=== PATIENT | female | born 1955 | race Caucasian/White ===

== ENCOUNTER → 2016-10-24 | Day surgery (SDC) | payer BC ==
[2016-10-19 15:40] VITALS: Ht 157.5 cm; Wt 72.7 kg
[~2016-10-24] VITALS: Ht 157.5 cm; Wt 72.7 kg
[~2016-10-24] MED LIST: CITA40TA12 PO; LEVO75TA PO; LIDOCAINE HCL 2% 2 ML VIAL (20MG/ML) ONE; MIDAZOLAM HCL 1 MG/ML 2ML VIAL ONE; ONDANSETRON INJ 2 MG/ML 2 ML VIAL ONE; PROPOFOL IV EMULSION 10 MG/ML 20 ML VIAL IV ONE; VITAMIN D PO
--- NOTE | 2016-10-24 11:36 | Endo History and Physical ---
History & Physical Date of Service: Oct 24, 2016. Chief Complaint: HX OF POLYPS Referring Physician: DR. DAHL History of Present Illness 60 yo CF who presents for colonoscopy secondary to history of colon polyps Past Medical History Thyroid Disease, [place] Past Surgical History Hx Cardiac Surgery: No Hx Internal Defibrillator: No Hx Pacemaker: No Hx Abdominal Surgery: No Hx of Implantable Prosthesis: No Hx Post-Op Nausea and Vomiting: Yes Hx Cancer Surgery: No Hx Thoracic Surgery: No Hx Orthopedic: Yes (RT SHOULDER ARTHROSCOPY, RT FOOT TOE SX) Hx Urinary Tract Surgery: No Family History Colon CA, IBD Social History Smoking Status: Former Smoker Hx Substance Use: No Hx Alcohol Use: Yes (RARELY) Allergies Coded Allergies: Adhesives (Verified Allergy, Unknown, WELTS, 10/24/16) Lactose Intolerance (Verified Adverse Reaction, Unknown, GI UPSET, 10/24/16 ) PATIENT CAN HAVE IN SMALL DOSES Current Medications Reported Home Medications Medications Dose Route/Sig Max Daily Dose Days Date Category [Vitamin D] 1 Tab PO QPM 10/19/16 Reported Synthroid (Levothyroxine Sodium) 75 Mcg Tab 75 Mcg PO QPM 05/31/13 Reported Celexa (Citalopram Hydrobromide) 40 Mg Tab 40 Mg PO QPM 05/31/13 Reported Vital Signs Weight (Kilograms): 72.73 Height (Feet): 5 Height (Inches): 2 Date Time Temp Pulse Resp B/P Pulse Ox O2 Delivery O2 Flow Rate FiO2 10/24/16 09:56 36.5 84 16 114/66 96 Room Air Physical Exam General Appearance: WD/WN, no apparent distress Respiratory/Chest: Auscultation: breath sounds normal Cardiovascular: Heart Auscultation: RRR Abdomen: Bowel Sounds: normal Inspection & Palpation: soft, non-distended, no tenderness, guarding & rebound Assessment and Plan Assessment: 60 yo CF who presents for colonoscopy secondary to history of colon polyps Plan: Proceed with colonoscopy.
--- NOTE | 2016-10-24 12:04 | GI REPORT ---
Procedure Date: 10/24/2016 11:17 AM Procedure: Colonoscopy Indications: Family history of colon cancer in a first-degree relative Medicines: Monitored Anesthesia Care Complications: No immediate complications. Estimated Blood Loss: Estimated blood loss: none. Procedure: Pre-Anesthesia Assessment: - Prior to the procedure, a History and Physical was performed, and patient medications and allergies were reviewed. The patient's tolerance of previous anesthesia was also reviewed. The risks and benefits of the procedure and the sedation options and risks were discussed with the patient. All questions were answered, and informed consent was obtained. Prior Anticoagulants: The patient has taken no previous anticoagulant or antiplatelet agents. ASA Grade Assessment: II - A patient with mild systemic disease. After reviewing the risks and benefits, the patient was deemed in satisfactory condition to undergo the procedure. After I obtained informed consent, the scope was passed under direct vision. Throughout the procedure, the patient's blood pressure, pulse, and oxygen saturations were monitored continuously. The Scope was introduced through the anus and advanced to the terminal ileum. The colonoscopy was performed without difficulty. The patient tolerated the procedure well. The quality of the bowel preparation was good. The terminal ileum, ileocecal valve, appendiceal orifice, and rectum were photographed. Findings: Two sessile polyps were found in the ascending colon. The polyps were 5 to 6 mm in size. These polyps were removed with a hot snare. Resection and retrieval were complete. The exam was otherwise without abnormality. Impression: - Two 5 to 6 mm polyps in the ascending colon, removed with a hot snare. Resected and retrieved. - The examination was otherwise normal. Recommendation: - Resume previous diet. - Continue present medications. - Repeat colonoscopy for surveillance based on pathology results. - Return to primary care physician as previously scheduled. Jeff Emerson DO 10/24/2016 12:03:26 PM This report has been signed electronically. Note Initiated On: 10/24/2016 11:17 AM
--- NOTE | 2016-10-24 12:05 | Discharge Instructions ---
Endoscopy Patient Instructions Date / Procedure(s) Performed Oct 24, 2016. Colonoscopy Allergy Information Coded Allergies: Adhesives (Verified Allergy, Unknown, WELTS, 10/24/16) Lactose Intolerance (Verified Adverse Reaction, Unknown, GI UPSET, 10/24/16 ) PATIENT CAN HAVE IN SMALL DOSES Discharge Date / Findings Oct 24, 2016. Colon polyps Medication Instructions OK to resume all medications today as prescribed Reported Home Medications Medications Dose Route/Sig Max Daily Dose Days Date Category [Vitamin D] 1 Tab PO QPM 10/19/16 Reported Synthroid (Levothyroxine Sodium) 75 Mcg Tab 75 Mcg PO QPM 05/31/13 Reported Celexa (Citalopram Hydrobromide) 40 Mg Tab 40 Mg PO QPM 05/31/13 Reported Provider Instructions Activity Restrictions - No exercising or heavy lifting for 24 hours. - Do not drink alcohol the day of the procedure. - Do not drive a car or operate machinery until the day after the procedure. - Do not make any important decisions or sign important papers in 24 hours after the procedure. Following Day: - Return to full activity which may include returning to work/school. Diet Start your diet with liquids and light foods (jello, soup, juice, toast). Then eat your usual diet if not nauseated. Treatment For Common After Affects For mild abdominal pain, bloating, or excessive gas: - Rest - Eat lightly - Lie on right side Follow-Up Information Follow-up with DR. DAHL as scheduled Anesthesia Information What You Should Know You have had a procedure that required some medicine to reduce anxiety and discomfort. This treatment is called moderate sedation. After receiving the treatment, you may be sleepy, but you will be able to breathe on your own. The effects of the treatment may last for several hours. Follow these instructions along with Activity/Diet recommendations noted above: * Do NOT do anything where dizziness or clumsiness would be dangerous. * Rest quietly at home today, then you can be up and about tomorrow. * Have a responsible person stay with you the rest of today. * You may have had an I.V. today. If so, you may take the dressing off later today. Recommendations Call your doctor if: * Trouble breathing * Continuous vomiting for more than 24 hours * Temperature above 101 degrees * Severe abdominal pain or bloating * Pain not relieved by pain medicine ordered * There is increased drainage or redness from any incision * A large amount of rectal bleeding greater than 2-3 tablespoons. (If you had a polyp/s removed or have hemorrhoids, a small amount of blood - from the rectum is to be expected.) * You have any unanswered questions or concerns. IN THE EVENT OF A SERIOUS EMERGENCY, GO TO THE NEAREST EMERGENCY ROOM Your discharge instructions were prepared by provider Jeff Emerson. Patient Instructions Signature Page Trish Sweeney Patient (or Guardian) Signature/Date: I have read and understand the instructions given to me by my caregivers. Caregiver/RN/Doctor Signature/Date: The above-named patient and/or guardian has received patient instructions on this date. + Original Patient Signature Page (only) stays with chart. Please make copy for patient.
[2016-10-24 12:34] VITALS: BP 108/62; PULSE 88; O2SAT 95
--- NOTE | 2016-10-24 12:35 | Anesthesiology Progress Note ---
Anesthesia Post Op Note Date & Time Oct 24, 2016 at 12:35 Vital Signs Pain Intensity: 0 Vital Signs Past 12 Hours Date Time Temp Pulse Resp B/P Pulse Ox O2 Delivery O2 Flow Rate FiO2 10/24/16 12:19 84 16 106/66 98 Room Air 10/24/16 12:04 91 16 100/54 96 Room Air 10/24/16 09:56 36.5 84 16 114/66 96 Room Air Notes Mental Status: alert / awake / arousable, participated in evaluation Pt Amnestic to Procedure: Yes Nausea / Vomiting: adequately controlled Pain: adequately controlled Airway Patency, RR, SpO2: stable & adequate BP & HR: stable & adequate Hydration State: stable & adequate Anesthetic Complications: no major complications apparent
== END | disposition home or self-care (01) ==
LOC: C.GI 09:24
PROVIDERS: ATTEND Internal Medicine
DX: Z12.11 Encounter for screening for malignant neoplasm of colon (principal); Z80.0 Family history of malignant neoplasm of digestive organs; D12.2 Benign neoplasm of ascending colon; I25.2 Old myocardial infarction; E07.9 Disorder of thyroid, unspecified; Z98.890 Other specified postprocedural states; Z87.891 Personal history of nicotine dependence; Z83.79 Family history of other diseases of the digestive system

== ENCOUNTER → 2016-12-12 | Outpatient (CLI) | payer BC ==
[~2016-12-12] MED LIST changes: -LIDOCAINE HCL 2% 2 ML VIAL (20MG/ML) ONE; -MIDAZOLAM HCL 1 MG/ML 2ML VIAL ONE; -ONDANSETRON INJ 2 MG/ML 2 ML VIAL ONE; -PROPOFOL IV EMULSION 10 MG/ML 20 ML VIAL IV ONE
--- NOTE | 2016-12-13 07:39 | MAMMOGRAPHY REPORT ---
BILATERAL DIGITAL SCREENING MAMMOGRAM TOMOSYNTHESIS WITH CAD: 12/12/2016 CLINICAL HISTORY: Routine screening examination. TECHNIQUE: Breast tomosynthesis in addition to standard 2D mammography was performed. Current study was also evaluated with a Computer Aided Detection (CAD) system. COMPARISON: Comparison is made to exams dated: 12/08/2015 mammogram, 08/07/2012 mammogram, 01/04/2010 mammogram - [facility], and 12/31/2006. BREAST COMPOSITION: There are scattered areas of fibroglandular density in both breasts. FINDINGS: A lobulated and circumscribed subcentimeter mass in the upper outer quadrant of the left b reast is minimally increased in size compared to the 2016 exam. However, this was previously docume nted to represent a simple cyst on ultrasound and considered benign. No new suspicious mass, mouna ectural distortion or cluster of microcalcifications is seen. IMPRESSION: ACR BI-RADS CATEGORY 1: NEGATIVE There is no mammographic evidence of malignancy. A 1 year screening mammogram is recommended. The p atient will receive written notification of the results. Approximately 10% of breast cancers are not detected with mammography. A negative mammographic repor t should not delay biopsy if a clinically suggestive mass is present. Romina Hernandez M.D. ay/:12/12/2016 17:02:08 Geospatial Image Analyst: Guera PARNELL)(Kerry), [facility] letter sent: Normal 1/2 BI-RADS Code: ACR BI-RADS Category 1: Negative
== END | disposition home or self-care (01) ==
LOC: C.MAMM 15:53
PROVIDERS: ATTEND Internal Medicine
DX: Z12.31 Encounter for screening mammogram for malignant neoplasm of breast (principal)

== ENCOUNTER → 2017-03-19 | Outpatient (CLI) | payer BC ==
[2017-03-19 17:49] LABS: ALT/SGPT 22 U/L (12-78); AST/SGOT 14 U/L (15-37); BLOOD UREA NITROGEN 12 mg/dl (7-18); BUN/CREATININE RATIO 19.8 (10-20); CALCIUM 8.2 mg/dl (8.5-10.1); CARBON DIOXIDE 29 mmol/L (21-32); CHLORIDE 107 mmol/L (98-107); GLUCOSE 96 mg/dl (70-99); POTASSIUM 3.9 mmol/L (3.5-5.1); SODIUM 143 mmol/L (136-145)
[2017-03-19 18:00] LABS: ALKALINE PHOSPHATASE 90 U/L (45-117); THYROID STIMULATING HORMONE 0.657 uIu/ml (0.300-4.500)
[2017-03-21 23:07] LABS: GLIADIN DEAMIDATED IgA AB 5 UNITS (<20); GLIADIN DEAMIDATED IgG AB 3 UNITS (<20); RETICULIN IgA AB Negative (Negative)
== END | disposition home or self-care (01) ==
LOC: C.LAB1850 16:19
PROVIDERS: ATTEND Internal Medicine
DX: R14.0 Abdominal distension (gaseous) (principal); E89.0 Postprocedural hypothyroidism; E55.9 Vitamin D deficiency, unspecified; Z11.59 Encounter for screening for other viral diseases

== ENCOUNTER → 2017-06-29 | Outpatient (CLI) | payer BC ==
[2017-06-29 17:34] LABS: ALT/SGPT 21 U/L (12-78); BLOOD UREA NITROGEN 11 mg/dl (7-18); BUN/CREATININE RATIO 14.3 (10-20); CARBON DIOXIDE 31 mmol/L (21-32); CHLORIDE 105 mmol/L (98-107); CREATININE 0.76 mg/dl (0.60-1.20); GLUCOSE 94 mg/dl (70-99); POTASSIUM 3.8 mmol/L (3.5-5.1); SODIUM 143 mmol/L (136-145)
[2017-06-29 17:37] LABS: ALB/GLOB RATIO 0.9 (0.9-2); ALKALINE PHOSPHATASE 99 U/L (45-117); AST/SGOT 15 U/L (15-37)
== END | disposition home or self-care (01) ==
LOC: C.LAB1850 15:56
PROVIDERS: ATTEND Physician Assistant
DX: R19.7 Diarrhea, unspecified (principal)

== ENCOUNTER → 2017-06-30 | Outpatient (CLI) | payer BC ==
[2017-07-10 14:23] LABS: O&P SOURCE OTHER-STOOL
== END | disposition home or self-care (01) ==
LOC: C.LAB 14:15 → MERGE 14:15
PROVIDERS: ATTEND Physician Assistant
DX: R19.7 Diarrhea, unspecified (principal)

== ENCOUNTER → 2017-09-10 | Outpatient (CLI) | payer BC ==
[2017-09-10 20:29] LABS: LYME DISEASE AB IGG NEG (NEG); LYME DISEASE AB IGM NEG (NEG)
== END | disposition home or self-care (01) ==
LOC: C.LAB 19:03
PROVIDERS: ATTEND Internal Medicine
DX: M25.50 Pain in unspecified joint (principal); M79.1 Myalgia

== ENCOUNTER → 2017-10-09 | Outpatient (CLI) | payer BC ==
--- NOTE | 2017-10-09 12:23 | DIAGNOSTIC IMAGING REPORT ---
CT OF THE HEAD WITHOUT CONTRAST CLINICAL HISTORY: Severe constant headache. COMPARISON STUDY: MRI of the brain January 04, 2010. CT DOSE: 537.48 mGy.cm TECHNIQUE: Helical axial images of the head were obtained without IV contrast. Automated exposure control was utilized for the study. A dose lowering technique was utilized adhering to the principles of ALARA. FINDINGS: No acute intracranial hemorrhage, midline shift or mass effect is present. Ventricular system is normal. Basilar cisterns are patent. There are no extra-axial collections. Dow-white differentiation is maintained. There are no findings to suggest acute dural sinus thrombosis or acute territorial infarct. A small right sphenoid sinus air-fluid level is noted. This was shown on prior exam of January 04, 2010. There is trace fluid within left mastoid air cells. There are no significant calvarial abnormalities. IMPRESSION: 1. No acute intracranial findings. 2. Small air-fluid level within the right sphenoid sinus. Electronically signed by: Lukas Glalego M.D. 10/09/2017 12:22 PM Dictated Date/Time: 10/09/2017 12:19 PM
== END | disposition home or self-care (01) ==
LOC: C.CTS 12:06
PROVIDERS: ATTEND Internal Medicine
DX: R51 Headache (principal)

== ENCOUNTER → 2017-10-10 | Outpatient (CLI) | payer BC ==
--- NOTE | 2017-10-10 10:29 | DIAGNOSTIC IMAGING REPORT ---
R HAND MIN 3 VIEWS ROUTINE CLINICAL HISTORY: M35.9 Undifferentiated connective tissue disease COMPARISON: None. DISCUSSION: No acute fractures or dislocations are visualized. The bony mineralization appears normal for age. There are no bony erosive changes. IMPRESSION: No significant bony abnormalities. No evidence of erosive disease. Electronically signed by: Toribio Graham M.D. 10/10/2017 10:28 AM Dictated Date/Time: 10/10/2017 10:26 AM
--- NOTE | 2017-10-10 10:30 | DIAGNOSTIC IMAGING REPORT ---
L HAND MIN 3 VIEWS ROUTINE CLINICAL HISTORY: M35.9 Undifferentiated connective tissue [id number] pain COMPARISON: None. DISCUSSION: The bones and joint spaces appear intact. There is no evidence of fracture, dislocation or bony disease. There is no evidence for soft tissue swelling. IMPRESSION: Negative study. The above report was generated using voice recognition software. It may contain grammatical, syntax or spelling errors. Electronically signed by: Jordy Conn M.D. 10/10/2017 10:28 AM Dictated Date/Time: 10/10/2017 10:27 AM
[2017-10-13 05:06] LABS: ALDOLASE** TC 66985R 3 U/L (0.0-8.1); ANA SCREEN TC 249X NEGATIVE (NEGATIVE); ANTI-SS-A <1.0 NEG AI (<1.0 NEG); ANTI-SS-B <1.0 NEG AI (<1.0 NEG); ANTICARDIOLIPID AB IGA <11 APL (< = 11); COMPLEMENT C4** TC 44982E 31 MG/DL (16-47); MICROSOMAL AB <1 IU/ML (<9); PARVOVIRUS IgM INDEX 0.1 (<0.9)
== END | disposition home or self-care (01) ==
LOC: C.RAD1850 10:13
PROVIDERS: ATTEND Internal Medicine Rheumatology
DX: M35.9 Systemic involvement of connective tissue, unspecified (principal); M79.1 Myalgia

== ENCOUNTER → 2017-11-09 | Outpatient (CLI) | payer BC ==
[2017-11-07 16:15] LABS: BLOOD UREA NITROGEN 13 mg/dl (7-18); CREATININE 0.84 mg/dl (0.60-1.20)
[~2017-11-09] MED LIST changes: +GADAVIST IV PRN
--- NOTE | 2017-11-09 15:58 | DIAGNOSTIC IMAGING REPORT ---
BRAIN MRI WITH AND WITHOUT INTRAVENOUS CONTRAST FOR TRIGEMINAL HISTORY: R51 Severe [id number] Facial numbness TECHNIQUE: Multiplanar multisequence MRI of the brain and skull base were performed both before and after the intravenous administration of contrast. COMPARISON STUDY: Head CT 10/09/2017. FINDINGS: No areas of restricted diffusion to suggest acute infarction. Incidental note is made of a partially sella. The remaining midline structures are intact. Mild mucosal thickening within the paranasal sinuses. The air cells are clear. The major vascular flow-voids at the skull base are well-maintained. The ventricles and sulci are within normal limits for age. There are few scattered punctate foci of T2 hyperintensity seen within the periventricular and subcortical white matter. These are nonspecific but suggestive of minimal microvascular ischemic change. There is also a small linear focus of increased T2 signal within the right cerebellar hemisphere. This may represent an old infarct. No abnormal enhancement within the brain. No abnormal enhancement seen along the expected pathways of the proximal trigeminal nerves. The orbits are unremarkable. Meckel's caves are widely patent. IMPRESSION: 1. No acute intracranial abnormality. 2. No abnormality along the visualized trigeminal nerves. 3. Presumed mild microvascular ischemic change. 4. A small linear focus of increased T2 signal within the right cerebellar hemisphere. This is nonspecific but may represent an old infarct. Electronically signed by: Byron Daugherty M.D. 11/09/2017 3:57 PM Dictated Date/Time: 11/09/2017 3:48 PM
== END | disposition home or self-care (01) ==
LOC: C.MRI 13:48
PROVIDERS: ATTEND Physician Assistant
DX: R51 Headache (principal); R20.0 Anesthesia of skin

== ENCOUNTER → 2017-12-13 | Outpatient (CLI) | payer BC ==
[~2017-12-13] MED LIST changes: -GADAVIST IV PRN
--- NOTE | 2017-12-14 13:53 | MAMMOGRAPHY REPORT ---
BILATERAL DIGITAL SCREENING MAMMOGRAM TOMOSYNTHESIS WITH CAD: 12/13/2017 TECHNIQUE: Breast tomosynthesis in addition to standard 2D mammography was performed. Current study was also evaluated with a Computer Aided Detection (CAD) system. COMPARISON: Comparison is made to exams dated: 12/12/2016 mammogram, 12/15/2015 ultrasound, 12/15/2015 delgado mogram, 12/08/2015 mammogram, 08/07/2012 mammogram, and 01/10/2010 mammogram - [facility] er. BREAST COMPOSITION: There are scattered areas of fibroglandular density in both breasts. FINDINGS: No suspicious masses, calcifications, or areas of architectural distortion are noted in ei ther breast. Again noted is a lobulated mass within the left upper outer quadrant anteriorly, which is slightly increased dating back to the 2016 examination but was shown to represent a cyst on the pr ior 2016 ultrasound exam. IMPRESSION: ACR BI-RADS CATEGORY 2: BENIGN There is no mammographic evidence of malignancy. A 1 year screening mammogram is recommended. The pa tient will receive written notification of the results. Approximately 10% of breast cancers are not detected with mammography. A negative mammographic report should not delay biopsy if a clinically suggestive mass is present. Hyun Fisher M.D. ah/:12/13/2017 16:05:57 Engineering Project Manager: Helene PARNELL)(Kerry), [facility] letter sent: Normal 1/2 BI-RADS Code: ACR BI-RADS Category 2: Benign
== END | disposition home or self-care (01) ==
LOC: C.MAMM 15:44
PROVIDERS: ATTEND Internal Medicine
DX: Z12.31 Encounter for screening mammogram for malignant neoplasm of breast (principal)